=== PATIENT | female | born 1965 | race Caucasian/White ===

== ENCOUNTER 2019-02-20 07:34 | Outpatient (RCR) | payer OTHER, SELFPAY | END 2019-03-11 00:01 | LOC: SPT 07:34 | PROVIDERS: Family Provider Family Medicine | DX: M62.89 Other specified disorders of muscle (principal); N39.41 Urge incontinence | CPT/HCPCS: 95831; 97110 ×4; 97140 ×3; 97161; 97530 ×4 ==

== ENCOUNTER 2019-03-12 13:53 | Outpatient (RCR) | payer OTHER, SELFPAY | END 2019-04-11 23:59 | disposition home or self-care (01) | LOC: SPT 13:53 | PROVIDERS: Family Provider Family Medicine; PCP Family Medicine; Visit Provider Family Medicine | DX: N81.84 Pelvic muscle wasting (principal) | CPT/HCPCS: 97110; 97140; 97530 ==

== ENCOUNTER 2019-04-12 06:00 | Outpatient (RCR) | payer OTHER, SELFPAY | END 2019-05-10 23:59 | disposition home or self-care (01) | LOC: SPT 06:00 | PROVIDERS: Family Provider Family Medicine; PCP Family Medicine; Visit Provider Family Medicine | DX: N81.89 Other female genital prolapse (principal) | CPT/HCPCS: 97110; 97140; 97530 ==

== ENCOUNTER → 2020-01-05 16:23 | Outpatient (BNVA) | payer OTHER, SELFPAY | PROVIDERS: Family Provider Family Medicine; PCP Family Medicine; Visit Provider Family Medicine | DX: Z11.59 Encounter for screening for other viral diseases (principal) | CPT/HCPCS: 87635 ==

== ENCOUNTER 2021-03-30 12:07 | Outpatient (CLI) | payer OTHER, SELFPAY ==
--- NOTE | 2021-03-30 12:17 | XR_ITS ---
WS: [id number] Exam: XR chest 2V* [id number] Date/Time of Exam: 03/30/2021 12:22 PM Reason For Exam: ATYPICAL CHEST PAIN Findings: The lungs are clear and fully expanded. Costophrenic angles are sharp. No infiltrates. Bronchovascula r relief appears normal. Cardiac silhouette is unremarkable. Bony elements are intact. XR/XR chest 2V* [id number] IMPRESSION: Unremarkable chest radiograph.
== END 2021-03-30 12:08 | disposition home or self-care (01) ==
PROVIDERS: PCP Family Medicine; Visit Provider Family Medicine
DX: R07.89 Other chest pain (principal)
CPT/HCPCS: 71046

== ENCOUNTER 2021-08-29 08:40 | Outpatient (CLI) | payer OTHER, SELFPAY ==
--- NOTE | 2021-08-29 08:50 | MM_ITS ---
WS: [id number] BILATERAL SCREENING DIGITAL BREAST TOMOSYNTHESIS MAMMOGRAM WITH CAD HISTORY: SCREEN COMPARISON: 06/03/2020, 04/21/2019 and 05/10/2017 Bilateral CC and MLO views with tomosynthesis and synthetic mammography submitted. Computer aided det ection analyzed. Breast composition: There are scattered areas of fibroglandular density. No suspicious masses, microc alcifications or architectural distortion. Mild asymmetry posterior to the LEFT nipple is stable. MM/[place] [id number] IMPRESSION: BI-RADS: 2-Benign FOLLOW UP: 1 Year Follow-up
== END 2021-08-29 08:41 | disposition home or self-care (01) ==
LOC: RAD 08:42
PROVIDERS: PCP Family Medicine; Visit Provider Obstetrics & Gynecology
DX: Z12.31 Encounter for screening mammogram for malignant neoplasm of breast (principal)
CPT/HCPCS: 77063; 77067

== ENCOUNTER → 2021-09-26 17:40 | Outpatient (BNVA) | payer OTHER, SELFPAY | PROVIDERS: PCP Family Medicine; Visit Provider Family Medicine | DX: R30.0 Dysuria (principal); N39.0 Urinary tract infection, site not specified | CPT/HCPCS: 81000 ==

== ENCOUNTER → 2021-09-30 00:01 | Outpatient (BNVA) | payer OTHER, SELFPAY | PROVIDERS: PCP Family Medicine; Referring Provider Family Medicine; Visit Provider Family Medicine | DX: R30.0 Dysuria (principal) | CPT/HCPCS: 87086 ==

== ENCOUNTER → 2023-05-03 07:49 | Outpatient (BNVA) | payer OTHER, SELFPAY | PROVIDERS: PCP Family Medicine; Referring Provider Family Medicine; Visit Provider Student in an Organized Health Care Education/Training Program | DX: M79.641 Pain in right hand (principal); M67.431 Ganglion, right wrist | CPT/HCPCS: 73130 ==

== ENCOUNTER 2023-10-04 09:30 | Outpatient (CLI) | payer OTHER, SELFPAY ==
--- NOTE | 2023-10-04 09:26 | MM_ITS ---
WS: [id number] SCREENING DIGITAL BREAST TOMOSYNTHESIS MAMMOGRAM WITH CAD HISTORY: SCREENING COMPARISON: 07/31/2022, 08/29/2021, 06/03/2020 Bilateral CC and MLO with tomosynthesis and synthetic mammography submitted. Computer aided detection analyzed. Breast composition: There are scattered areas of fibroglandular density. New asymmetries within each breast. There is a well-circumscribed high density mass measuring 6 x 5 mm RIGHT breast posteriorly e stimated near 11:00. There is an additional asymmetry in the upper outer quadrant middle depth LEFT b reast which was not present on the prior study. No calcifications. MM/[place] [id number] IMPRESSION: BI-RADS: 0-Incomplete: Need additional imaging evaluation FOLLOW UP: Need Additional Imaging LEFT breast: Spot compression views (CC and MLO). True ML. Ultrasound to follow if abnormality persists. RIGHT breast: Spot compression views (CC and MLO). True ML. Ultrasound to follo w if abnormality persists.
== END 2023-10-04 09:31 | disposition home or self-care (01) ==
PROVIDERS: PCP Family Medicine; Visit Provider Nurse Practitioner Family
DX: Z12.31 Encounter for screening mammogram for malignant neoplasm of breast (principal); R92.323 Mammographic fibroglandular density, bilateral breasts; N64.89 Other specified disorders of breast; N63.11 Unspecified lump in the right breast, upper outer quadrant
CPT/HCPCS: 77063; 77067